=== PATIENT | male | born 2000 | race African-American/Black ===

== ENCOUNTER 2022-10-10 16:25 | Emergency (ER) | payer BC, MEDICAID ==
[~2022-10-10] VITALS: Ht 180.3 cm; Wt 87.0 kg
[2022-10-10] MEDS ORDERED: IBUPROFEN 600MG TABLET PO ONE (18:15)
[2022-10-10 18:46] VITALS: BP 141/91
[2022-10-10] MEDS ORDERED: NAPR-1074 MT (19:41)
== END 2022-10-10 20:00 | disposition home or self-care (01) ==
LOC: ER 16:25 → EDBD 16:25 → ER 20:00
DX: M25.561 Pain in right knee (principal); M79.661 Pain in right lower leg; M79.89 Other specified soft tissue disorders; F41.9 Anxiety disorder, unspecified
CPT/HCPCS: 29505; 73560; 93971; 99284; L1830; Z7610